=== PATIENT | male | born 1965 | race Caucasian/White ===

== ENCOUNTER → 2016-08-28 | Outpatient (CLI) | payer OTHER ==
[~2016-08-28] VITALS: Ht 170.2 cm; Wt 90.7 kg
[~2016-08-28] MED LIST: FLON1SPR; GLUC1CAP10 PO; LIDOCAINE 2% INJ 100 MG/5 ML SDV (FOR ANES.) As Ordered ONE; LUNE3TAB48 PO; MULT1TAB10 PO; NS 1,000 ML IV SCH; PROPOFOL 200 MG/20 ML VIAL As Ordered ONE; SERO1TAB3 PO; ZOLO50TA PO; ZYRT10CA PO
--- NOTE | 2016-08-28 10:03 | ROOR ---
Patient Name: Justin Anne Procedure Date: 08/28/2016 9:38 AM Date of : 1965 Age: 51 Room: M OPP Gender: Male Note Status: Finalized Procedure: Colonoscopy Indications: Screening for colorectal malignant neoplasm Providers: Justin DODSON MD Referring MD: PAULIE APODACA MD Requesting Provider: Medicines: Monitored Anesthesia Care Complications: No immediate complications. Procedure: Pre-Anesthesia Assessment: - The heart rate, respiratory rate, oxygen saturations, blood pressure, adequacy of pulmonary ventilation, and response to care were monitored throughout the procedure. The Colonoscope was introduced through the anus and advanced to the cecum, identified by appendiceal orifice and ileocecal valve. The colonoscopy was performed without difficulty. The patient tolerated the procedure well. The quality of the bowel preparation was excellent. Findings: The perianal and digital rectal examinations were normal. A 7 mm polyp was found in the ascending colon. The polyp was semi-sessile. The polyp was removed with a cold snare. Resection and retrieval were complete. Internal hemorrhoids were found during retroflexion. The hemorrhoids were moderate. The exam was otherwise without abnormality. (Exam: Complete, Prep: Good or Excellent.) Impression: - One 7 mm polyp in the ascending colon, removed with a cold snare. Resected and retrieved. - Internal hemorrhoids. - The examination was otherwise normal. - (Exam: Complete, Prep: Good or Excellent.) Recommendation: - Repeat colonoscopy in 3 years for surveillance. - Telephone endoscopist for pathology results in 2 weeks. Justin Dodson MD Justin DODSON MD 08/28/2016 10:03:12 AM This report has been signed electronically. Number of Addenda: 0 Note Initiated On: 08/28/2016 9:38 AM Estimated Blood Loss: Estimated blood loss: none.
[2016-08-28 10:38] VITALS: BP 142/63
== END | disposition home or self-care (01) ==
LOC: M OPP 08:45
PROVIDERS: ATTEND Internal Medicine Gastroenterology
DX: Z12.11 Encounter for screening for malignant neoplasm of colon (principal); D12.2 Benign neoplasm of ascending colon; K64.8 Other hemorrhoids; I51.7 Cardiomegaly; R06.83 Snoring; F41.9 Anxiety disorder, unspecified; F33.9 Major depressive disorder, recurrent, unspecified; F43.10 Post-traumatic stress disorder, unspecified; G47.30 Sleep apnea, unspecified; Z79.899 Other long term (current) drug therapy; Z88.0 Allergy status to penicillin

== ENCOUNTER 2020-03-26 07:10 | Day surgery (SDC) | payer OTHER ==
[~2020-03-26 07:10] MED LIST changes: -LIDOCAINE 2% INJ 100 MG/5 ML SDV (FOR ANES.) As Ordered ONE; +LIDOCAINE 2% MDV 20ML VIAL ONE; +LUNE3TAB36 PO; -LUNE3TAB48 PO; -NS 1,000 ML IV SCH; -PROPOFOL 200 MG/20 ML VIAL As Ordered ONE; +propofoL 200 MG/20 ML VIAL ONE
[2020-03-26] MEDS ORDERED: propofoL 200 MG/20 ML VIAL ONE (07:20)
[2020-03-26] MEDS ORDERED: fentaNYL 100 MCG/2 ML INJECTION (J3010) ONE (07:42)
--- NOTE | 2020-04-24 11:33 | ROOR ---
Patient Name: Justin Anne Procedure Date: 03/26/2020 7:31 AM Date of : 1965 Age: 54 Room: [facility] Gender: Male Note Status: Various Exceptionalities Teacher Override Procedure: Colonoscopy Indications: High risk colon cancer surveillance: Personal history of colonic polyps Providers: Justin YEAGER MD Referring MD: PAULIE APODACA MD Requesting Provider: Medicines: Monitored Anesthesia Care Complications: No immediate complications. Procedure: Pre-Anesthesia Assessment: - The heart rate, respiratory rate, oxygen saturations, blood pressure, adequacy of pulmonary ventilation, and response to care were monitored throughout the procedure. The Colonoscope was introduced through the anus and advanced to the cecum, identified by appendiceal orifice and ileocecal valve. The colonoscopy was performed without difficulty. The patient tolerated the procedure well. The quality of the bowel preparation was good. Findings: The perianal and digital rectal examinations were normal. Small Internal Hemorrhoids. The entire examined colon appeared normal on direct and retroflexion views. Impression: - Small Internal Hemorrhoids. - The entire examined colon is normal on direct and retroflexion views. - No specimens collected. Recommendation: - Repeat colonoscopy in 5 years for surveillance. Justin YEAGER MD 03/26/2020 7:51:13 AM Number of Addenda: 0 Note Initiated On: 03/26/2020 7:31 AM Estimated Blood Loss: Estimated blood loss: none.
== END 2020-03-26 08:25 | disposition home or self-care (01) ==
LOC: M SDC 07:10
PROVIDERS: ATTEND Internal Medicine Gastroenterology
DX: Z12.11 Encounter for screening for malignant neoplasm of colon (principal); Z86.010 Personal history of colon polyps; K64.8 Other hemorrhoids; G47.30 Sleep apnea, unspecified; Z79.899 Other long term (current) drug therapy; Z88.0 Allergy status to penicillin
CPT/HCPCS: 45378; J3010

== ENCOUNTER → 2020-07-23 | Outpatient (CLI) | payer SELFPAY ==
[~2020-07-23] MED LIST changes: -LIDOCAINE 2% MDV 20ML VIAL ONE; -propofoL 200 MG/20 ML VIAL ONE
== END ==
LOC: M LABSMTC 12:03
PROVIDERS: ATTEND Pediatrics
DX: Z11.59 Encounter for screening for other viral diseases (principal)

== ENCOUNTER → 2021-11-25 | Outpatient (REF) | payer OTHER ==
[2021-11-26 14:09] LABS: IgG P18 AB Absent (.); IgG P23 AB Absent (.); IgG P28 AB Absent (.); IgG P30 AB Absent (.); IgG P39 AB Absent (.); IgG P41 AB Present (.); IgG P45 AB Absent (.); IgG P66 AB Absent (.); IgG P93 AB Absent (.); IgM P23 AB Absent (.); IgM P39 AB Absent (.); IgM P41 AB Absent (.); LYME IgG WB INTERPRETATION Negative (.); LYME IgM WB INTERPRETATION Negative (.)
== END ==
LOC: M WUC 12:21
PROVIDERS: ATTEND Internal Medicine
DX: R21 Rash and other nonspecific skin eruption (principal)

== ENCOUNTER 2025-04-21 05:44 | Emergency (ER) | payer OTHER ==
[~2025-04-21] VITALS: Ht 170.2 cm; Wt 83.1 kg
[~2025-04-21 05:44] MED LIST changes: -LUNE3TAB36 PO; +LUNE3TAB50 PO
[2025-04-21 07:07] LABS: BASO # 0.1 10^3/uL (0.0-0.2); BASO % 0.4 % (0.0-1.0); EOS # 0.0 10^3/uL (0.0-0.5); EOS % 0.3 % (0.0-3.0); LYMPH # 1.3 10^3/uL (1.5-5.0); LYMPH % 11.2 % (24.0-44.0); MONO # 0.9 10^3/uL (0.0-0.8); MONO % 7.2 % (2.0-8.0); NEUTROPHILS # 9.6 10^3/uL (1.5-8.5); NEUTROPHILS % 80.3 % (36.0-66.0); PLATELET COUNT, AUTOMATED 293 10^3/uL (150-450)
[2025-04-21 07:30] LABS: CALCIUM LEVEL 8.8 MG/DL (8.5-10.1); CARBON DIOXIDE LEVEL 27 MMOL/L (20-31); CHLORIDE LEVEL 100 MMOL/L (98-107); CREATININE FOR GFR 0.97 MG/DL (0.70-1.30); GLOMERULAR FILTRATION RATE > 90.0 (>56); POTASSIUM SERUM 3.8 MMOL/L (3.5-5.1); SODIUM LEVEL 137 MMOL/L (136-145)
[2025-04-21] MEDS: NS (Normal Saline) 0.9% 1,000 ML IV ONE (08:02)
[2025-04-21] MEDS: ACETAMINOPHEN *IV* 1,000 MG in IV 1 EA IV ONE (08:04)
[2025-04-21 10:05] LABS: KETONE, URINE AUTO RFX TRACE mg/dL (NEGATIVE); NITRITE, URINE AUTO RFX NEGATIVE (NEGATIVE); RBC, URINE AUTO RFX 0 /HPF (0-3); SQUAM EPITHELIAL CELL UR AURFX 0 /HPF (0-6)
[2025-04-21] MEDS: LIDOCAINE 2% 5 ML JELLY UROJET TOP ONE (10:12)
[2025-04-21 10:18] LABS: LEUKOCYTE ESTERASE UR AUTO RFX TRACE (NEGATIVE); WBC, URINE AUTO RFX 11 /HPF (0-3)
[2025-04-21 10:30] VITALS: BP 138/75; O2SAT 99
[2025-04-21 10:36] VITALS: TEMP 98
== END 2025-04-21 10:48 | disposition home or self-care (01) ==
LOC: M ED 05:44
DX: N13.9 Obstructive and reflux uropathy, unspecified (principal); R33.9 Retention of urine, unspecified; F32.A Depression, unspecified; G47.30 Sleep apnea, unspecified; Z98.890 Other specified postprocedural states; Z79.2 Long term (current) use of antibiotics; Z79.899 Other long term (current) drug therapy; Z88.0 Allergy status to penicillin
CPT/HCPCS: 80048; 81001; 85025; 87086; 99285; J0131